=== PATIENT | female | born 1955 | race Caucasian/White ===

== ENCOUNTER 2017-06-02 10:31 | Emergency (ER) | payer BC ==
[2017-06-02 11:16] LABS: ADD MAN DIFF? NO
[2017-06-02 11:19] LABS: BASOPHIL # 0.1 10^3/ul (0.0-0.1); EOSINOPHILS # 0.1 10^3/ul (0.0-0.5); EOSINOPHILS % 1.3 % (0.0-7.0); HEMATOCRIT 31.3 % (37.0-47.0); HEMOGLOBIN 10.7 g/dl (12.0-16.0); LYMPHOCYTES # 1.4 10^3/ul (0.8-2.9); LYMPHOCYTES % 21.8 % (15.0-51.0); MEAN CORPUSCULAR HEMOGLOBIN 29.6 pg (29.0-33.0); MEAN CORPUSCULAR HGB CONC 34.2 g/dl (32.0-37.0); MEAN CORPUSCULAR VOLUME 86.7 fl (82.0-101.0); MEAN PLATELET VOLUME 10.4 fl (7.4-10.4); MONOCYTE # 0.9 10^3/ul (0.3-0.9); MONOCYTES % 14.6 % (0.0-11.0); NEUTROPHIL # 3.7 10^3/ul (1.6-7.5); NEUTROPHILS % 59.4 % (39.0-77.0); PLATELET COUNT 326 10^3/UL (140-415); RED BLOOD COUNT 3.61 10^6/ul (4.20-5.40); RED CELL DISTRIBUTION WIDTH 14.8 % (11.5-14.5)
[2017-06-02 11:19] LABS: WHITE BLOOD COUNT 6.2 10^3/ul (4.8-10.8)
[2017-06-02] MEDS: LORAZEPAM 2 MG INJ IV (11:23)
[2017-06-02 11:38] LABS: ANION GAP 14 (8-16); BLOOD UREA NITROGEN 14 mg/dl (7-20); CALCIUM 8.9 mg/dl (8.4-10.2); CARBON DIOXIDE 25 mmol/L (21-31); CHLORIDE 104 mmol/L (97-110); CREATININE 0.33 mg/dl (0.44-1.00); GLUCOSE 94 mg/dl (70-220); POTASSIUM 3.9 mmol/L (3.5-5.1); SODIUM 139 mmol/L (135-144)
[2017-06-02] MEDS: ONDANSETRON 4 MG INJ IV (12:17)
[2017-06-02 13:36] LABS: INR 0.94; PROTIME 12.7 Sec (11.9-14.9)
[2017-06-02 13:37] LABS: PARTIAL THROMBOPLASTIN TIME 32.4 Sec (25.0-35.0)
== END 2017-06-02 15:36 | disposition home or self-care (01) ==
LOC: E/R 10:31
DX: G40.909 Epilepsy, unspecified, not intractable, without status epilepticus (principal); I10 Essential (primary) hypertension; Z85.3 Personal history of malignant neoplasm of breast; Z79.01 Long term (current) use of anticoagulants
CPT/HCPCS: 36415; 70450; 80048; 85025; 85610; 85730; 93005; 94002; 96374; 96375; 99285-25

== ENCOUNTER 2017-06-09 18:00 | Inpatient (IN) | payer BC ==
[2017-06-09] MEDS: SODIUM CHLORIDE 0.9% 1L BAG IV* (18:57)
[2017-06-09 19:05] LABS: ADD MAN DIFF? NO
[2017-06-09 19:09] LABS: WHITE BLOOD COUNT 22.1 10^3/ul (4.8-10.8)
[2017-06-09 19:09] LABS: ABNORMAL IP MESSAGE 1; BASOPHIL # 0.1 10^3/ul (0.0-0.1); BASOPHILS % 0.3 % (0.0-2.0); EOSINOPHILS # 0.1 10^3/ul (0.0-0.5); EOSINOPHILS % 0.6 % (0.0-7.0); HEMATOCRIT 30.3 % (37.0-47.0); HEMOGLOBIN 10.3 g/dl (12.0-16.0); LYMPHOCYTES # 1.4 10^3/ul (0.8-2.9); LYMPHOCYTES % 6.2 % (15.0-51.0); MEAN CORPUSCULAR HEMOGLOBIN 29.5 pg (29.0-33.0); MEAN CORPUSCULAR VOLUME 86.8 fl (82.0-101.0); MEAN PLATELET VOLUME 10.9 fl (7.4-10.4); MONOCYTE # 2.1 10^3/ul (0.3-0.9); MONOCYTES % 9.5 % (0.0-11.0); NEUTROPHIL # 18.2 10^3/ul (1.6-7.5); NEUTROPHILS % 82.4 % (39.0-77.0); PLATELET COUNT 256 10^3/UL (140-415); RED BLOOD COUNT 3.49 10^6/ul (4.20-5.40); RED CELL DISTRIBUTION WIDTH 15.4 % (11.5-14.5)
[2017-06-09 19:13] LABS: POSITIVE DIFF @See below
[2017-06-09] MEDS ORDERED: ONDANSETRON 4 MG INJ IV ×2 (19:30→20:00)
[2017-06-09 19:41] LABS: ALANINE AMINOTRANSFERASE 36 IU/L (13-69); ALBUMIN 3.4 g/dl (3.3-4.9); ALBUMIN/GLOBULIN RATIO 1.13; ALKALINE PHOSPHATASE 80 IU/L (42-121); ANION GAP 13 (8-16); ASPARTATE AMINO TRANSFERASE 26 IU/L (15-46); BILIRUBIN,INDIRECT 0.2 mg/dl (0-1.1); BILIRUBIN,TOTAL 0.2 mg/dl (0.2-1.3); BLOOD UREA NITROGEN 12 mg/dl (7-20); CALCIUM 8.7 mg/dl (8.4-10.2); CARBON DIOXIDE 27 mmol/L (21-31); CHLORIDE 102 mmol/L (97-110); CREATININE 0.32 mg/dl (0.44-1.00); GLUCOSE 112 mg/dl (70-220); POTASSIUM 3.7 mmol/L (3.5-5.1); SODIUM 138 mmol/L (135-144); TOTAL PROTEIN 6.4 g/dl (6.1-8.1)
[2017-06-09 19:56] LABS: TROPONIN-I 0.764 ng/ml (0.00-0.12)
[2017-06-09 19:57] LABS: ADD UMIC YES; UR ASCORBIC ACID 40 mg/dL (NEGATIVE); UR BACTERIA MODERATE /HPF (NONE SEEN); UR BILIRUBIN (Dip) NEGATIVE (NEGATIVE); UR BLOOD (Dip) NEGATIVE (NEGATIVE); UR CLARITY CLOUDY (CLEAR); UR COLOR AMBER (YELLOW); UR GLUCOSE (Dip) NEGATIVE (NEGATIVE); UR KETONES (Dip) NEGATIVE (NEGATIVE); UR LEUKOCYTE ESTERASE (Dip) 3+ Leu/ul (NEGATIVE); UR NITRITE (Dip) NEGATIVE (NEGATIVE); UR NONSQUAMOUS EPITHELIAL CELL 4 /HPF (NONE SEEN); UR RBC 14 /HPF (0-5); UR SPECIFIC GRAVITY (Dip) 1.017 (1.003-1.030); UR SQUAMOUS EPITHELIAL CELL MODERATE /HPF (FEW); UR TOTAL PROTEIN (Dip) 1+ mg/dl (NEGATIVE); UR UROBILINOGEN (Dip) 1+ mg/dL (NEGATIVE); UR WBC > 182 /HPF (0-5)
[2017-06-09] MEDS ORDERED: ALBUTEROL/IPRATROPIUM (NEB) 3 ML AMP HHN (20:00)
[2017-06-09] MEDS ORDERED: NACL 0.9% 3 ML SYG IV (20:00)
[2017-06-09] MEDS ORDERED: ACETAMINOPHEN 325 MG TAB PO (20:00)
[2017-06-09] MEDS ORDERED: MAGNESIUM HYDROXIDE 30ML CUP GTB (20:00)
[2017-06-09] MEDS ORDERED: BISACODYL 10 MG SUPP PR (20:00)
[2017-06-09] MEDS ORDERED: HYDROCODONE/APAP (5/325) TAB GTB (20:00)
[2017-06-09] MEDS ORDERED: morphine 2 MG INJ IV (20:00)
[2017-06-09] MEDS ORDERED: ALBUTEROL 0.083% (NEB) 2.5 MG/3 ML AMP NEB (20:00)
[2017-06-09] MEDS: AZTREONAM 1 GM/NS (PMX) 50 ML IVPB (20:04)
[2017-06-09 20:20] LABS: PROTIME 13.3 Sec (11.9-14.9)
[2017-06-09 20:21] LABS: PARTIAL THROMBOPLASTIN TIME 43.5 Sec (25.0-35.0)
[2017-06-09] MEDS: DOCUSATE SODIUM 100 MG CAP PO (21:00)
[2017-06-09 21:15] LABS: LACTIC ACID 0.9 mmol/L (0.5-2.0)
[2017-06-09 22:53] LABS: LACTIC ACID 1.5 mmol/L (0.5-2.0)
[2017-06-10] MEDS: CHLORHEXIDINE GLUCONATE 15 ML UD CUP MM ×3 (00:01→21:00)
[2017-06-10] MEDS: LEVETIRACETAM (100 MG/ML) 5ML CUP PO ×3 (00:01→21:00)
[2017-06-10] MEDS: SOD CHLORIDE 0.9% 1,000 ML IV ×2 (00:01→09:06)
[2017-06-10] MEDS ORDERED: PANTOPRAZOLE (EC) 40 MG TAB PO (06:00)
[2017-06-10 06:37] LABS: ADD MAN DIFF? NO
[2017-06-10 06:47] LABS: BASOPHIL # 0.1 10^3/ul (0.0-0.1); BASOPHILS % 0.3 % (0.0-2.0); EOSINOPHILS # 0.1 10^3/ul (0.0-0.5); EOSINOPHILS % 0.9 % (0.0-7.0); HEMATOCRIT 30.3 % (37.0-47.0); HEMOGLOBIN 10.2 g/dl (12.0-16.0); LYMPHOCYTES # 1.2 10^3/ul (0.8-2.9); LYMPHOCYTES % 7.7 % (15.0-51.0); MEAN CORPUSCULAR HEMOGLOBIN 29.3 pg (29.0-33.0); MEAN CORPUSCULAR HGB CONC 33.7 g/dl (32.0-37.0); MEAN CORPUSCULAR VOLUME 87.1 fl (82.0-101.0); MEAN PLATELET VOLUME 11.3 fl (7.4-10.4); MONOCYTE # 1.1 10^3/ul (0.3-0.9); MONOCYTES % 7.5 % (0.0-11.0); NEUTROPHIL # 12.5 10^3/ul (1.6-7.5); NEUTROPHILS % 82.7 % (39.0-77.0); PLATELET COUNT 238 10^3/UL (140-415); RED BLOOD COUNT 3.48 10^6/ul (4.20-5.40); RED CELL DISTRIBUTION WIDTH 14.9 % (11.5-14.5)
[2017-06-10 06:47] LABS: WHITE BLOOD COUNT 15.2 10^3/ul (4.8-10.8)
[2017-06-10 07:16] LABS: ALANINE AMINOTRANSFERASE 34 IU/L (13-69); ALBUMIN 3.2 g/dl (3.3-4.9); ALKALINE PHOSPHATASE 94 IU/L (42-121); ANION GAP 12 (8-16); ASPARTATE AMINO TRANSFERASE 30 IU/L (15-46); BILIRUBIN,INDIRECT 0.3 mg/dl (0-1.1); BILIRUBIN,TOTAL 0.3 mg/dl (0.2-1.3); BLOOD UREA NITROGEN 7 mg/dl (7-20); CALCIUM 8.8 mg/dl (8.4-10.2); CARBON DIOXIDE 24 mmol/L (21-31); CHLORIDE 110 mmol/L (97-110); CREATININE 0.28 mg/dl (0.44-1.00); GLUCOSE 97 mg/dl (70-220); POTASSIUM 3.2 mmol/L (3.5-5.1); SODIUM 143 mmol/L (135-144); TOTAL PROTEIN 6.4 g/dl (6.1-8.1)
[2017-06-10 07:47] LABS: CREATINE KINASE 43 IU/L (23-200)
[2017-06-10] MEDS: LANSOPRAZOLE 30 MG CAP GTB (07:52)
[2017-06-10] MEDS: LEVOTHYROXINE 75 MCG TAB GTB (07:52)
[2017-06-10 07:57] LABS: CK INDEX 2.6
[2017-06-10 08:13] LABS: CK-MB 1.13 ng/ml (0.0-2.4); TROPONIN-I 0.541 ng/ml (0.00-0.12)
[2017-06-10] MEDS: ENOXAPARIN 40 MG/0.4 ML SYG SC (09:00)
[2017-06-10] MEDS: METOPROLOL 25 MG TAB GTB ×3 (09:28→21:00)
[2017-06-10] MEDS: LACTOBACILLUS RHAMNOSUS CAP GTB (09:29)
[2017-06-10] MEDS: ASCORBIC ACID 500 MG TAB GTB (09:29)
[2017-06-10] MEDS: MULTIVITAMINS 30 ML CUP GTB (09:29)
[2017-06-10] MEDS: AMLODIPINE 10 MG TAB GTB (09:30)
[2017-06-10] MEDS: ACETAMINOPHEN 325 MG TAB PO (09:57)
[2017-06-10] MEDS: LEVOFLOXACIN 500MG/D5W (PMX) 100 ML IVPB (10:22)
[2017-06-10 14:53] LABS: CREATINE KINASE 40 IU/L (23-200)
[2017-06-10 15:22] LABS: TROPONIN-I 0.565 ng/ml (0.00-0.12)
[2017-06-10] MEDS: POTASSIUM CHLORIDE 20 MEQ POWDER FOR ORAL SOLN PO (18:29)
[2017-06-10] MEDS: DOCUSATE SODIUM 100 MG CAP PO (21:00)
[2017-06-11 04:56] LABS: ADD MAN DIFF? NO
[2017-06-11 05:01] LABS: BASOPHIL # 0.1 10^3/ul (0.0-0.1); BASOPHILS % 0.7 % (0.0-2.0); EOSINOPHILS # 0.1 10^3/ul (0.0-0.5); EOSINOPHILS % 1.8 % (0.0-7.0); HEMATOCRIT 28.9 % (37.0-47.0); HEMOGLOBIN 9.8 g/dl (12.0-16.0); LYMPHOCYTES % 14.9 % (15.0-51.0); MEAN CORPUSCULAR HEMOGLOBIN 29.3 pg (29.0-33.0); MEAN CORPUSCULAR HGB CONC 33.9 g/dl (32.0-37.0); MEAN CORPUSCULAR VOLUME 86.3 fl (82.0-101.0); MEAN PLATELET VOLUME 11.1 fl (7.4-10.4); MONOCYTE # 0.7 10^3/ul (0.3-0.9); MONOCYTES % 10.7 % (0.0-11.0); NEUTROPHIL # 4.8 10^3/ul (1.6-7.5); NEUTROPHILS % 70.6 % (39.0-77.0); PLATELET COUNT 240 10^3/UL (140-415); RED BLOOD COUNT 3.35 10^6/ul (4.20-5.40); RED CELL DISTRIBUTION WIDTH 14.9 % (11.5-14.5)
[2017-06-11 05:01] LABS: WHITE BLOOD COUNT 6.8 10^3/ul (4.8-10.8)
[2017-06-11 05:50] LABS: ANION GAP 14 (8-16); BLOOD UREA NITROGEN 8 mg/dl (7-20); CALCIUM 8.9 mg/dl (8.4-10.2); CARBON DIOXIDE 21 mmol/L (21-31); CHLORIDE 113 mmol/L (97-110); CREATININE 0.27 mg/dl (0.44-1.00); GLUCOSE 145 mg/dl (70-220); MAGNESIUM 1.8 mg/dl (1.7-2.5); PHOSPHORUS 4.4 mg/dl (2.5-4.9); POTASSIUM 3.8 mmol/L (3.5-5.1); SODIUM 144 mmol/L (135-144)
[2017-06-11 06:13] LABS: TROPONIN-I 0.483 ng/ml (0.00-0.12)
[2017-06-11] MEDS: LEVOTHYROXINE 75 MCG TAB GTB (08:32)
[2017-06-11] MEDS: LACTOBACILLUS RHAMNOSUS CAP GTB (08:32)
[2017-06-11] MEDS: METOPROLOL 25 MG TAB GTB (08:33)
[2017-06-11] MEDS: ASCORBIC ACID 500 MG TAB GTB (08:34)
[2017-06-11] MEDS: MULTIVITAMINS 30 ML CUP GTB (08:34)
[2017-06-11] MEDS: AMLODIPINE 10 MG TAB GTB (08:34)
[2017-06-11] MEDS: LEVOFLOXACIN 500MG/D5W (PMX) 100 ML IVPB (08:34)
[2017-06-11] MEDS: CHLORHEXIDINE GLUCONATE 15 ML UD CUP MM (08:35)
[2017-06-11] MEDS: ENOXAPARIN 40 MG/0.4 ML SYG SC (08:39)
[2017-06-11] MEDS: LEVETIRACETAM (100 MG/ML) 5ML CUP PO (10:44)
[2017-06-11] MEDS ORDERED: CEFOTAXIME 2 GM/50 ML (PMX) 50 ML IVPB (15:30)
[2017-06-11] MEDS: CEFTRIAXONE 1 GM/50 ML (PMX) 50 ML IVPB (16:21)
== END 2017-06-11 18:45 | DRG 871 ==
LOC: E/R 06-11 18:45 → TEL 19:24
PROC: 5A1945Z Respiratory Ventilation, 24-96 Consecutive Hours (ICD-10-PCS; principal; 2017-06-09)
DX: A41.9 Sepsis, unspecified organism (principal); I21.A1 Myocardial infarction type 2; Z99.11 Dependence on respirator [ventilator] status; G93.49 Other encephalopathy; G93.1 Anoxic brain damage, not elsewhere classified; J96.10 Chronic respiratory failure, unspecified whether with hypoxia or hypercapnia; Z93.0 Tracheostomy status; N39.0 Urinary tract infection, site not specified; J98.11 Atelectasis; Z86.74 Personal history of sudden cardiac arrest; I48.0 Paroxysmal atrial fibrillation; Z93.1 Gastrostomy status; E03.9 Hypothyroidism, unspecified; B96.4 Proteus (mirabilis) (morganii) as the cause of diseases classified elsewhere; I10 Essential (primary) hypertension; Z85.3 Personal history of malignant neoplasm of breast
CPT/HCPCS: 36415; 71045; 80048; 80053; 81001; 82550; 82553; 83605; 83735; 84100; 84484; 85025; 85610; 85730; 87040; 87086; 93005; 94002; 94003; 96372; 96374; 96375; 96376; 99291-25

== ENCOUNTER 2017-06-11 19:48 | Observation (INO) | payer BC ==
[2017-06-11] MEDS: METOPROLOL 25 MG TAB PO (20:37)
[2017-06-11 21:17] LABS: TROPONIN-I 0.356 ng/ml (0.00-0.12)
[2017-06-12] MEDS ORDERED: ACETAMINOPHEN 325 MG TAB PO (00:30)
[2017-06-12] MEDS ORDERED: ONDANSETRON 4 MG INJ IV ×2 (00:30→03:00)
[2017-06-12] MEDS ORDERED: MINERAL OIL 133 ML ENEMA PR (03:00)
[2017-06-12] MEDS ORDERED: ACETAMINOPHEN 325 MG TAB GTB (03:00)
[2017-06-12] MEDS ORDERED: ALBUTEROL/IPRATROPIUM (NEB) 3 ML AMP HHN (03:00)
[2017-06-12] MEDS ORDERED: BISACODYL 10 MG SUPP PR (03:00)
[2017-06-12] MEDS ORDERED: MAGNESIUM HYDROXIDE 30ML CUP GTB (03:00)
[2017-06-12] MEDS ORDERED: NACL 0.9% 3 ML SYG IV (03:00)
[2017-06-12] MEDS ORDERED: ALBUTEROL 0.083% (NEB) 2.5 MG/3 ML AMP NEB (03:00)
[2017-06-12] MEDS ORDERED: morphine 2 MG INJ IV (03:00)
[2017-06-12] MEDS ORDERED: hydrALAzine 20 MG INJ IV (03:00)
[2017-06-12] MEDS ORDERED: HYDROCODONE/APAP (5/325) TAB GTB (03:00)
[2017-06-12] MEDS: LEVOTHYROXINE 75 MCG TAB GTB (06:31)
[2017-06-12] MEDS: LANSOPRAZOLE 30 MG CAP GTB (06:31)
[2017-06-12 07:38] LABS: ADD MAN DIFF? NO
[2017-06-12 07:48] LABS: BASOPHILS % 0.8 % (0.0-2.0); EOSINOPHILS # 0.1 10^3/ul (0.0-0.5); EOSINOPHILS % 2.6 % (0.0-7.0); HEMATOCRIT 29.5 % (37.0-47.0); HEMOGLOBIN 10.4 g/dl (12.0-16.0); LYMPHOCYTES # 1.1 10^3/ul (0.8-2.9); LYMPHOCYTES % 21.1 % (15.0-51.0); MEAN CORPUSCULAR HEMOGLOBIN 29.7 pg (29.0-33.0); MEAN CORPUSCULAR HGB CONC 35.3 g/dl (32.0-37.0); MEAN CORPUSCULAR VOLUME 84.3 fl (82.0-101.0); MEAN PLATELET VOLUME 10.9 fl (7.4-10.4); MONOCYTE # 0.6 10^3/ul (0.3-0.9); MONOCYTES % 11.2 % (0.0-11.0); NEUTROPHIL # 3.1 10^3/ul (1.6-7.5); NEUTROPHILS % 62.5 % (39.0-77.0); PLATELET COUNT 263 10^3/UL (140-415); RED CELL DISTRIBUTION WIDTH 14.5 % (11.5-14.5)
[2017-06-12 08:03] LABS: ALANINE AMINOTRANSFERASE 42 IU/L (13-69); ALBUMIN 3.4 g/dl (3.3-4.9); ALKALINE PHOSPHATASE 77 IU/L (42-121); ANION GAP 12 (8-16); ASPARTATE AMINO TRANSFERASE 26 IU/L (15-46); BILIRUBIN,INDIRECT 0.2 mg/dl (0-1.1); BILIRUBIN,TOTAL 0.2 mg/dl (0.2-1.3); BLOOD UREA NITROGEN 4 mg/dl (7-20); CARBON DIOXIDE 22 mmol/L (21-31); CHLORIDE 110 mmol/L (97-110); CREATININE 0.26 mg/dl (0.44-1.00); GLUCOSE 106 mg/dl (70-220); POTASSIUM 3.4 mmol/L (3.5-5.1); SODIUM 141 mmol/L (135-144); TOTAL PROTEIN 6.8 g/dl (6.1-8.1)
[2017-06-12 08:09] LABS: CALCIUM 9.3 mg/dl (8.4-10.2)
[2017-06-12] MEDS ORDERED: NON-FORMULARY/PATIENT OWN MED (Cran/Vitc/Mannose/Inulin/Brom (Uti-Stat Liquid) 30 ML) GTB (09:00)
[2017-06-12] MEDS: ARTIFICIAL TEARS 15 ML OPH BOTH EYES (09:36)
[2017-06-12] MEDS: METOPROLOL 25 MG TAB GTB (09:36)
[2017-06-12] MEDS: MULTIVITAMINS 30 ML CUP GTB (09:36)
[2017-06-12] MEDS: CHLORHEXIDINE GLUCONATE 15 ML UD CUP MM (09:37)
[2017-06-12] MEDS: LACTOBACILLUS RHAMNOSUS CAP GTB (09:37)
[2017-06-12] MEDS: ASCORBIC ACID 500 MG TAB GTB (09:37)
[2017-06-12] MEDS: LEVETIRACETAM (100 MG/ML) 5ML CUP GTB (09:37)
[2017-06-12] MEDS: AMLODIPINE 10 MG TAB GTB (09:37)
[2017-06-12] MEDS: HEPARIN 5,000 UNIT/0.5 ML VIAL SC (09:56)
[2017-06-12] MEDS: POTASSIUM CHLORIDE 20 MEQ POWDER FOR ORAL SOLN GTB (11:07)
[2017-06-12] MEDS: LISINOPRIL 10 MG TAB GTB (11:07)
[2017-06-12] MEDS: CEFTRIAXONE 1 GM/50 ML (PMX) 50 ML IVPB (11:54)
[2017-06-12] MEDS: DIPHENHYDRAMINE 50 MG INJ IV (11:55)
[2017-06-12] MEDS ORDERED: LISINOPRIL 10 MG TAB GTB (21:00)
[2017-06-13] MEDS ORDERED: ASPIRIN 81 MG TAB PO (09:00)
== END 2017-06-12 18:39 ==
LOC: TEL 06-12 00:23 → E/R 19:48
PROVIDERS: Internal Medicine
DX: I10 Essential (primary) hypertension (principal); I48.91 Unspecified atrial fibrillation; E03.9 Hypothyroidism, unspecified; N39.0 Urinary tract infection, site not specified; D64.9 Anemia, unspecified; R13.10 Dysphagia, unspecified; Z93.1 Gastrostomy status; Z90.11 Acquired absence of right breast and nipple; Z93.0 Tracheostomy status; Z88.0 Allergy status to penicillin; Z85.3 Personal history of malignant neoplasm of breast
CPT/HCPCS: 71045; 80053; 84484; 85025; 87081; 94002; 94003; G0378